=== PATIENT | male | born 1980 | race African-American/Black ===

== ENCOUNTER 2017-12-23 11:44 | Emergency (ER) | payer SELFPAY ==
[2017-12-23] MEDS: AZITHROMYCIN 250 MG TABLET. PO (12:24)
[2017-12-23] MEDS: cefTRIAXone IM 250 MG VIAL IM (12:24)
[2017-12-23] MEDS: metroNIDAZOLE 500 MG TABLET PO (12:24)
[2017-12-23 12:47] LABS: BILIRUBIN,URINE NEGATIVE (NEG); CLARITY,URINE CLEAR; COLOR,URINE YELLOW; GLUCOSE,URINE NEGATIVE (NEG); NITRITE,URINE NEGATIVE (NEG); PH,URINE 6.5; PROTEIN,URINE 30 mg/dL (NEG-TRACE); UROBILINOGEN,URINE 0.2 mg/dL (0.2 mg/dL)
[2017-12-23 13:06] LABS: BACTERIA,URINE FEW /HPF (0-FEW)
[2017-12-23 13:07] LABS: SQUAMOUS EPITHELIAL CELL,UR OCC /LPF
== END 2017-12-23 13:26 | disposition home or self-care (01) ==
LOC: ER 13:26
DX: R30.0 Dysuria (principal); Z20.2 Contact with and (suspected) exposure to infections with a predominantly sexual mode of transmission; F17.210 Nicotine dependence, cigarettes, uncomplicated; Z87.440 Personal history of urinary (tract) infections
CPT/HCPCS: 81001; 96372; 99283; J0696; Q0144